=== PATIENT | female | born 1995 | race African-American/Black ===

== ENCOUNTER 2019-12-03 05:24 | Observation (INO) | payer BC ==
[~2019-12-03] VITALS: Ht 157.5 cm; Wt 97.0 kg
[2019-12-03] VITALS (14 sets, daily range): BP systolic 115–155; BP diastolic 69–98
[~2019-12-03 05:24] MED LIST: Vit D3 PO; testosterone INJ
[2019-12-03] MEDS ORDERED: ceFAZolin sod 2 GM in NS 55 ML IVPB ONE (07:00)
[2019-12-03] MEDS ORDERED: Bupivacaine 0.25% Inj 30ml INJ ONE (07:05)
[2019-12-03] MEDS ORDERED: Bacitracin Oint 15gm Tube TOPIC ONE (07:05)
[2019-12-03] MEDS ORDERED: Muri-Lube ONE (07:05)
[2019-12-03] MEDS ORDERED: Dyna-Hex 2% Top Sol 2oz TOPIC ONE (07:05)
[2019-12-03] MEDS ORDERED: Lidocaine 1% 10mg/ml/Epi 0.005mg/ml 30ml vial INJ ONE (07:06)
[2019-12-03] MEDS ORDERED: Sodium Chloride 10ml vial INJ ONE (07:24)
[2019-12-03] MEDS ORDERED: Lidocaine 1% MPF 10mg/ml 5ml ONE ×2 (07:24→10:41)
[2019-12-03] MEDS ORDERED: fentaNYL 100 mcg/2 mL IV ONE (07:25)
--- NOTE | 2019-12-03 07:28 | Pre-Procedure Note/Attestation ---
Pre-Procedure Note/Attestation Complete Prior to Procedure Planned Procedure: bilateral Procedure Narrative: bilateral mastectomy and nipple areola reconstruction Indications for Procedure Pre-Operative Diagnosis: gender dysphoria Attestation I attest that I discussed the nature of the procedure; its benefits; risks and complications; and alternatives (and the risks and benefits of such a lternatives), prior to the procedure, with the patient (or the patient's legal retention representative). I attest that, if there was a reasonable possibility of needing a blood transfusion, the patient (or the patient's legal retention representative) was given the [facility] standardized written summary, pursuant to the Misbah Noe Blood Safety Act ([place] Health and Safety Code # 1645, as amended). I attest that I re-evaluated the patient just prior to the surgery and that there has been no change in the patient's H&P, except as documented below: Shaq Villalba MD Dec 03, 2019 07:28
[2019-12-03] MEDS ORDERED: LR 1000ml 1,000 ML IVLG SCH (07:30)
[2019-12-03] MEDS ORDERED: Sterile Water Irrig 1000ml IRRIG ONE ×2 (07:30→09:00)
[2019-12-03] MEDS ORDERED: LORazepam Inj 2mg/ml 1ml IV PRN (07:30)
[2019-12-03] MEDS ORDERED: HYDROcodone/Acetamin 5/325 tab ORAL PRN ×2 (07:30→11:15)
[2019-12-03] MEDS ORDERED: Ketorolac 30mg Inj IV PRN ×2 (07:30)
[2019-12-03] MEDS ORDERED: Midazolam 2mg/2ml Inj IVP PRN (07:30)
[2019-12-03] MEDS ORDERED: Hydromorphone 0.5mg/0.5ml inj IVP PRN (07:30)
[2019-12-03] MEDS ORDERED: NS Irrig 1000ml ONE (07:30)
[2019-12-03] MEDS ORDERED: LR 1000ml ONE ×2 (07:30→09:00)
[2019-12-03] MEDS ORDERED: HYDROcodone/Acetamin 7.5/325 tab ORAL PRN (07:30)
[2019-12-03] MEDS ORDERED: Atropine Sulfate 0.4mg/ml inj IVP PRN (07:30)
[2019-12-03] MEDS ORDERED: Neostigmine 1mg/ml 10ml Inj ONE (07:30)
[2019-12-03] MEDS ORDERED: Meperidine 25mg/0.5ml Inj (FOR RIGORS ONLY) IV PRN (07:30)
[2019-12-03] MEDS ORDERED: oxyCODONE HCL/Acetaminophen 5/325mg ORAL PRN (07:30)
[2019-12-03] MEDS ORDERED: DiphenhydrAMINE 50mg/ml Inj IVP PRN (07:30)
[2019-12-03] MEDS ORDERED: propofoL 1,000mg/100ml IV ONE (07:30)
[2019-12-03] MEDS ORDERED: fentaNYL 100 mcg/2 mL IV PRN (07:30)
[2019-12-03] MEDS ORDERED: Acetaminophen (Non formulary) 100 ML IV ONE (07:30)
[2019-12-03] MEDS ORDERED: Metoclopramide 10mg/2ml Inj IVP PRN (07:30)
[2019-12-03] MEDS ORDERED: Labetalol 5mg/ml 20ml vial IV PRN (07:30)
--- NOTE | 2019-12-03 07:31 | Anethesia Preoperative Eval ---
Anesthesia Pre-op PMH/ROS General Date of Evaluation: Dec 03, 2019 Time of Evaluation: 07:31 Anesthesiologist: Valentin ASA Score: ASA 2 Mallampati Score Class I : Soft palate, uvula, fauces, pillars visible Class II: Soft palate, uvula, fauces visible Class III: Soft palate, base of uvula visible Class IV: Only hard plate visible Mallampati Classification: Class I Surgeon: Orly Diagnosis: Gender Dysphoria Surgical Procedure: Bilateral Mastectomy with Nipple Reconstruction Anesthesia History: none Family History: no anesthesia problems Allergies: Coded Allergies: No Known Allergies (Unverified , 12/02/19) Medications: see eMAR Patient NPO?: Yes Past Medical History Cardiovascular: Reports: HTN Anesthesia Pre-op Phys. Exam Physician Exam Last Vital Signs Date Time Temp Pulse Resp B/P (MAP) Pulse Ox O2 Delivery O2 Flow Rate FiO2 12/03/19 05:48 97.3 78 18 155/84 99 Room Air Constitutional: NAD Neurologic: CN 2-12 intact Cardiovascular: RRR Respiratory: CTA Gastrointestinal: S/NT/ND Airway Exam Mallampati Score: Class II MO: full ROM: limited Teeth: intact Anesthesia Pre-op A/P Labs Urine Test Test 12/03/19 05:30 Urine HCG, Qualitative Negative (NEGATIVE) Risk Assessment & Plan Assessment: ASA 2 Plan: GA, SED, GlideScope Status Change Before Surgery: No Pre-Antibiotics Dru Grams Ancef IV Given Within 1 Hr of Incision: Yes Time Given: 07:46 Rivas Hanson MD Dec 03, 2019 07:31
[2019-12-03] MEDS ORDERED: Rocuronium Bromide 50mg/5ml Inj IV ONE (07:33)
[2019-12-03] MEDS ORDERED: NS Irrig 1000ml IRRIG ONE ×2 (07:54→08:14)
--- NOTE | 2019-12-03 08:59 | Immediate Post-Op Evaluation ---
Immediate Post-Op Evalulation Immediate Post-Op Evalulation Procedure: Bilateral Mastectomy with Nipple Reconstruction Date of Evaluation: Dec 03, 2019 Time of Evaluation: 11:50 IV Fluids: 1700 LR Blood Products: 0 Estimated Blood Loss: 50 Urinary Output: 0 Blood Pressure Systolic: 153 Blood Pressure Diastolic: 98 Pulse Rate: 93 Respiratory Rate: 16 O2 Sat by Pulse Oximetry: 100 Temperature (Fahrenheit): 97.8 Pain Score (1-10): 2 Nausea: No Vomiting: No Complications 0 Patient Status: awake, reacts, patent, extubated, none Hydration Status: adequate Dru Grams Ancef IV Given Within 1 Hr of Incision: Yes Time Given: 07:46 Rivas Hanson MD Dec 03, 2019 08:59
[2019-12-03] MEDS ORDERED: Lidocaine 1% Plain 30 ml INJ ONE (09:12)
[2019-12-03] MEDS ORDERED: Glycopyrrolate 0.2mg/ml 1ml Vial ONE (10:49)
--- NOTE | 2019-12-03 11:07 | Operative Note - PDOC ---
Operative Note Operative Note Date of Operation/Procedure: Dec 03, 2019 Pre-op Diagnosis: gender dysphoria Procedure: bilateral mastectomy, bilateral nipple areola reconstruction Post-op Diagnosis: same as pre-op Surgeon: Orly Anesthesiologist: Valentin Anesthesia: general Specimen: yes Complications: none Condition: stable Estimated Blood Loss: minimal Drains: TONY Implant(s) used?: No Shaq Villalba MD Dec 03, 2019 11:07
--- NOTE | 2019-12-03 11:08 | Discharge Instructions ---
Discharge Instructions Discharge Instructions Follow up with: Dr. Villalba 12/09/19 Diet: regular Resume Normal Activity?: Yes - do not lift or carry anything heavier than 10 lbs Activity: ambulate For Surgical Patients Dressing Care: keep dry and clean May shower: No - sponge bathe only For Congestive Heart Failure Reminder Report to your physician any weight gain of 5 pounds or more in one week. Shaq Villalba MD Dec 03, 2019 11:08
[2019-12-03] MEDS ORDERED: HYDROmorphone 1mg/ml Carpuject SUBQ PRN (11:15)
[2019-12-03] MEDS ORDERED: Tylenol #3 tab (300mg/30mg) ORAL PRN (11:15)
--- NOTE | 2019-12-03 13:40 | NUR ---
NURSE NOTES: Patient arrived on unit. Stable. Breathing is even and unlabored. No visible signs of distress noted. Surgical dressing c/d/i. TONY x2 noted, both compressed and draining bloody output. Patient oriented to room, call light, and unit. Patient instructed to use call light for assistance, verbalized understanding. All safety measures provided. Patient is in bed in locked and lowest position with call light within reach. All needs met at this time. Will continue to monitor.
--- NOTE | 2019-12-03 14:15 | Operative Note - Dictated ---
DATE OF OPERATION: 12/03/2019 PREOPERATIVE DIAGNOSIS: Gender dysphoria. POSTOPERATIVE DIAGNOSIS: Gender dysphoria. PROCEDURE: 1. Bilateral mastectomy. 2. Bilateral nipple-areola reconstruction utilizing full-thickness grafts (each graft 2.5 x 2.5 cm). SURGEON: Shaq Villalba MD. ANESTHESIOLOGIST: Rivas Hanson MD. ANESTHESIA: General. ESTIMATED BLOOD LOSS: Minimal. SPECIMENS: 1. Right breast. 2. Left breast. DRAINS: A 15-Welsh Luke x2. COMPLICATIONS: None. CONDITION: To recovery room stable. INDICATION FOR PROCEDURE: This is a very pleasant 24-year-old trans male, who desires top surgery as part of his transition. He has the appropriate letter for recommendation from his therapist and meets all WPATH criteria for top surgery. I have discussed the risks, benefits, and alternatives to the procedure with him including, but not limited to, bleeding, infection, scarring, nerve injury, asymmetry, contour deformity, hematoma, seroma, loss of nipple sensation, loss of nipple graft and need for additional surgery including revisions. I discussed the orientation of the incisions and the unpredictable nature of scarring. No guarantees were made regarding the outcome. All of his questions have been answered to the best of my ability. He verbalized understanding with everything that we discussed and wishes to proceed. DESCRIPTION OF PROCEDURE: The patient was identified in the preoperative holding area and marked in the standing position. He was then brought to the operating room where he was placed in the supine position on the operating room table with his arms extended on arm boards. All bony prominences were adequately padded. Sequential compression devices were placed and intravenous antibiotics were administered. After induction of anesthesia, the patient's chest was prepped and draped in sterile fashion. Starting on the left breast first, a [place] measuring 2.5 cm in diameter was drawn out centered around the nipple. Next, the subdermal plane within this marking was infiltrated with 4 mL of 1% lidocaine with epinephrine. I then used a 15 blade scalpel to incise the areolar marking and proceeded to harvest a full-thickness nipple areola graft. The graft was subsequently defatted, wrapped in wet gauze and placed on the back table. I then made the inframammary fold incision using a 10 blade scalpel. Dissection proceeded down through the underlying tissues until the pectoralis major fascia was reached. I then made the superior breast incision using a 10 blade scalpel. Dissection proceeded down to the level of Shobha's fascia. Skin Rakes were used to retract the skin and a plane of dissection was created superiorly between the subcutaneous tissues and underlying breast parenchyma. Next, the breast parenchyma was elevated off of the pectoralis major fascia proceeding from a medial to lateral direction. The specimen was passed off the table. Hemostasis was achieved and the wound was irrigated with saline, 10 mL of FloSeal was placed within the wound cavity. A 15-Welsh Luke drain was then placed within the wound and brought out through a separate stab incision and secured using 2-0 silk suture. Skin dexter were then used to temporarily reapproximate the skin. I then shifted my attention to the contralateral side of the chest where the identical procedure was performed. The patient was then sat up on the operating room table and it appeared that he had very reasonable symmetry between the two sides of his chest. I then used a marking pen to draw the new location of the nipple areola complex on each side of the chest and these markings were confirmed with direct measurements. He was then placed back in the supine position. On each side of the chest, the skin dexter were removed and wound closure was performed using interrupted 0 Vicryl suture for the Shobha's fascia layer followed by interrupted 3-0 PDS suture for the deep dermal layer and then a running 3-0 Monocryl subcuticular suture to reapproximate the skin. I then proceeded with the nipple areola reconstruction portion of the procedure. Starting on the left chest first, the shasta areolar marking was incised using a 15 blade scalpel. The intervening skin within the marking was then de-epithelialized. I then brought out the full-thickness nipple areola graft and proceeded to inset it into the de-epithelialized area using a running 5-0 fast-absorbing suture. Next, several 2-0 silk suture ties were placed around the periphery of the graft. The skin graft bolster was fashioned and then secured into place directly on top of the nipple areola graft using the 2-0 silk sutures. 10 mL of 0.25% plain Marcaine was then injected into the incision. I then shifted my attention to the contralateral side of the chest where the identical procedure was performed. Steri-Strips were placed on top of the surgical incisions followed by sterile dressings. The patient was then placed into a compressive chest wrap. He tolerated the procedure well and was sent to the recovery room in stable condition. All instrument, sharp, and sponge counts were correct at the conclusion of the case. Shaq Villalba M.D. DR: ROBIN JOB#: [id number] CC: KTAELIN
[2019-12-03] MEDS ORDERED: D5 1/2NS 1,000 ML IV SCH (15:00)
[2019-12-03] MEDS: D5 1/2NS w/KCl 20mEq 1,000 ML IV SCH (16:30)
--- NOTE | 2019-12-03 16:43 | History and Physical ---
History of Present Illness General Date patient seen: Dec 03, 2019 Time patient seen: 01:20 Present Illness HPI 24 transgender M was admitted following bilateral mastectomy for episode of hypoxia. Patient was seen following bilateral mastectomy and nipple reconstruction by Dr. Villalba in the PACU. Per nursing staff patient was doing well post-op, however following extubation had an episode of desaturation and was having difficulty awakening. On evaluation at bedside patient was intermittently somnolent and requiring 2-3L NC to maintain O2 sat >95%. He denies any other medical problems. He does have a family history of diabetes and hypertension. He takes vitamin D supplements and testosterone injections weekly. He denied any n/v, chest pain, or change in bowel movements. Patient lives alone. Allergies: Coded Allergies: No Known Allergies (Unverified , 12/02/19) COVID-19 Screening Contact w/high risk pt: No Experienced COVID-19 symptoms?: No Medication History Scheduled [Vit D3], 1 TAB-CAP PO DAILY, (Reported) [testosterone ], 1 EA INJ QWEEK, (Reported) Patient History History Provided By: Patient Healthcare decision maker Resuscitation status Advanced Directive on File Past Medical/Surgical History Past Medical/Surgical History: (1) Respiration slowed or stopped Family History Family History: FH: diabetes mellitus FH: hypertension Review of Systems Constitutional: Denies: no symptoms, see HPI, chills, sweats, fever, malaise, weakness, other Eye: Denies: no symptoms, see HPI, eye pain, blurred vision, tearing, double vision, nose pain, nose congestion, acuity changes, discharge, other ENT: Denies: no symptoms, see HPI, ear pain, ear discharge, nose pain, nose congestion, throat pain, throat swelling, mouth pain, hearing loss, nasal discharge, other Respiratory: Denies: no symptoms, see HPI, cough, orthopnea, shortness of breath, stridor, wheezing, CABAN, sputum, other Cardiovascular: Denies: no symptoms, see HPI, chest pain, edema, palpitations, syncope, PND, other Gastrointestinal: Denies: no symptoms, see HPI, abdominal pain, constipation, diarrhea, nausea, vomiting, melena, hematemesis, other Genitourinary: Denies: no symptoms, see HPI, discharge, dysuria, frequency, hematuria, pain, retention, incontinence, urgency, vag bleed/dc, other Musculoskeletal: Denies: no symptoms, see HPI, back pain, gout, joint pain, joint swelling, muscle pain, muscle stiffness, other Skin: Denies: no symptoms, see HPI, rash, change in color, change in hair/nails, dryness, lesions, other Psychiatric: Denies: no symptoms, see HPI, prior hx, anxiety, depressed feelings, emotional problems, SI, HI, hallucinations, other Neurological: Denies: no symptoms, see HPI, headache, numbness, paresthesia, seizure, tingling, tremors, focal weakness, syncope, dizziness, other Endocrine: Denies: no symptoms, see HPI, excessive sweating, flushing, intolerance to temperature, increased thirst, increased urine, unexplained weight loss, other Hematologic/Lymphatic: Denies: no symptoms, see HPI, anemia, blood clots, easy bleeding, easy bruising, swollen glands, diathesis, other Physical Exam General Appearance: lethargic, overweight Lines, tubes and drains: other - drain in place with bandage wrapping following mastectomy HEENT: normocephalic, atraumatic Neck: supple Respiratory/Chest: normal breath sounds Cardiovascular/Chest: normal rate, regular rhythm Abdomen: non tender, soft Extremities: normal range of motion Skin Exam: warm/dry Neurologic: commercial assistant II-XII grossly normal Last 24 Hour Vital Signs Date Time Temp Pulse Resp B/P (MAP) Pulse Ox O2 Delivery O2 Flow Rate FiO2 12/03/19 15:00 Room Air 12/03/19 13:30 97.9 84 20 118/72 97 Nasal Cannula 3 12/03/19 13:15 80 21 120/75 97 Nasal Cannula 3 12/03/19 13:00 84 21 122/75 98 Nasal Cannula 3 12/03/19 12:45 88 23 131/78 96 Nasal Cannula 3 12/03/19 12:30 82 23 134/85 96 Nasal Cannula 3 12/03/19 12:17 88 22 131/87 97 Nasal Cannula 3 12/03/19 12:02 87 22 136/87 99 Simple Mask 6 12/03/19 11:52 85 24 137/98 100 Simple Mask 6 12/03/19 11:42 90 22 139/94 100 Simple Mask 6 12/03/19 11:40 93 16 100 12/03/19 11:37 92 20 148/98 100 Simple Mask 6 12/03/19 11:32 97.8 97 15 153/98 99 Simple Mask 6 12/03/19 05:48 97.3 78 18 155/84 99 Room Air 12/03/19 05:48 Room Air Intake and Output 12/02/19 12/03/19 18:59 06:59 # Voids 1 Laboratory Tests Test 12/03/19 05:30 Urine HCG, Qualitative Negative (NEGATIVE) Height (Feet): 5 Height (Inches): 2.00 Weight (Pounds): 214 Medications Current Medications Medications (Trade) Dose Ordered Sig/Nicole Route PRN Reason Start Time Stop Time Status Last Admin Dose Admin Acetaminophen/ Codeine Phosphate (Tylenol #3) 1 tab Q4H PRN ORAL mild pain 12/03/19 11:15 12/10/19 11:14 Acetaminophen/ Hydrocodone Bitart ([place] 5/325) 1 tab Q4H PRN ORAL Moderate Pain (Pain Scale 4-6) 12/03/19 12:00 12/10/19 11:59 Dextrose/ Electrolytes 1,000 ml @ 125 mls/hr Q8H IV 12/03/19 16:00 01/02/20 15:59 Docusate Sodium (Colace) 100 mg TWICE A DAY ORAL 12/03/19 18:00 01/02/20 17:59 Hydromorphone HCl (Dilaudid) 1 mg Q1H PRN SUBQ Severe Pain (Pain Scale 7-10) 12/03/19 11:15 12/10/19 11:14 Ibuprofen (Motrin) 800 mg THREE TIMES A DAY ORAL 12/03/19 18:00 01/02/20 17:59 Ondansetron HCl (Zofran) 4 mg Q6H PRN IVP Nausea & Vomiting 12/03/19 12:00 01/02/20 11:59 Assessment/Plan Assessment/Plan: #Hypoxia #Possible Sleep Apnea Patient initially evaluated following surgery in PACU. O2 sat 95-97% on 2-3L NC. Given weight patient could have a component of sleep apnea vs. obesity hypoventilation. - Continue to monitor and wean off oxygen - Keep O2 sat >92% - Incentive spirometer - CXR if needed if O2 sat cannot be weaned or if febrile - Patient may benefit from outpatient sleep study #S/p Bilateral Mastectomy - Surgery 12/[address] Villalba - Continue excellent post-op care - Ancef 1g prior to surgery - Wound dressings in place #Transgender Female to Male - Currently taking weekly testosterone injections #Low Vitamin D - Continue supplementation on discharge #Obesity - BMI 39.1 - Will continue to field counsel on weight I spent approximately 50 minutes on this encounter with 20 minutes spent with counseling and care coordination. Discussed with nursing staff and Dr. Villalba. Time of note does not reflect time of encounter. Winifred Armando M.D. Dec 03, 2019 16:43
[2019-12-03] MEDS: Docusate 100mg cap ORAL SCH (17:42)
--- NOTE | 2019-12-03 18:26 | NUR ---
NURSE NOTES: TONY Left: 35cc bloody output. TONY right: 10cc bloody output.
--- NOTE | 2019-12-03 19:36 | NUR ---
NURSE HAND-OFF: Important Events on Shift:s/p surgery, void x2 Patient Status: stable Diet: regular Pending Orders: n/a Pending Results/Labs:n/a Pending MD notification:n/a Latest Vital Signs: Temperature 98.3 , Pulse 94 , B/P 123 /79 , Respiratory Rate 18 , O2 SAT 95 , Nasal Cannula, O2 Flow Rate 3 . Vital Sign Comment: n/a Latest Ibarra Fall Score: 35 Fall Risk: Medium Risk Safety Measures: Call light Within Reach, Side Rails x2, Bed position Low and Locked. Fall Precautions: Patient Fall Education Report given to Irasema RN.
[2019-12-03] MEDS: HYDROcodone/Acetamin 5/325 tab ORAL PRN (21:09)
[2019-12-04] VITALS: BP 106/66
[2019-12-04] MEDS: D5 1/2NS w/KCl 20mEq 1,000 ML IV SCH ×2 (00:14→08:03)
--- NOTE | 2019-12-04 01:14 | NUR ---
NURSE NOTES: RECEIVED PATIENT FROM ELIZABETH HOLGUIN. PATIENT IS ASLEEP, ON ROOM AIR, NO ACUTE DISTRESS NOTED. WOUND DRESSINGS INTACT, TONY DRAINS NOTED ON BILATERAL BREASTS, SEROSANGUINOUS OUTPUT NOTED. PIV ON RIGHT HAND, RUNNING D5 1/2 NS W/ 20MEQ AT 125ML/HR. SCDS ON. BED IS LOCKED AND LOW, BED ALARMS ACTIVE, SIDE RAILS UPX2, AND CALL LIGHT IS WITHIN REACH. WILL CONTINUE TO MONITOR.
[2019-12-04 04:00] VITALS: BP 119/75
[2019-12-04 07:02] LABS: BASOPHILS % (AUTO) 1.7 % (0.0-2.0); EOSINOPHILS % (AUTO) 0.2 % (0.0-3.0); HEMATOCRIT 47.4 % (42.0-52.0); HEMOGLOBIN 15.4 G/DL (14.2-18.0); LYMPHOCYTES % (AUTO) 19.6 % (20.0-45.0); MEAN CORPUSCULAR VOLUME 84 FL (80-99); MONOCYTES % (AUTO) 6.3 % (1.0-10.0); NEUTROPHILS % (AUTO) 72.3 % (45.0-75.0); PLATELET COUNT 271 K/UL (150-450); RED BLOOD COUNT 5.62 M/UL (4.70-6.10); RED CELL DISTRIBUTION WIDTH 12.3 % (11.6-14.8); WHITE BLOOD COUNT 8.2 K/UL (4.8-10.8)
[2019-12-04 07:05] LABS: ANION GAP 7 mmol/L (5-15); BLOOD UREA NITROGEN 10 mg/dL (7-18); CALCIUM 8.4 MG/DL (8.5-10.1); CARBON DIOXIDE 25 MMOL/L (21-32); CHLORIDE 103 MMOL/L (98-107); CREATININE 0.9 MG/DL (0.55-1.30); POTASSIUM 3.9 MMOL/L (3.5-5.1); SODIUM 135 MMOL/L (136-145)
--- NOTE | 2019-12-04 07:19 | NUR ---
NURSE HAND-OFF: Important Events on Shift: DRESSINGS INTACT, (R) TONY 5ML OUTPUT, (L) TONY 35ML OUTPUT, DOING WELL ON ROOM AIR, ENCOURAGE INCENTIVE SPIROMETER USE. Patient Status: STABLE Diet: REGULAR Pending Orders: DISCHARGE PLANNING Pending Results/Labs: CBC, BMP Pending MD notification:N/A Latest Vital Signs: Temperature 98.1 , Pulse 85 , B/P 119 /75 , Respiratory Rate 17 , O2 SAT 98 , Room Air, O2 Flow Rate 3 . Vital Sign Comment: STABLE Latest Ibarra Fall Score: 35 Fall Risk: Medium Risk Safety Measures: Call light Within Reach, Bed Alarm Zone 1, Side Rails Side Rails x2, Bed position Low and Locked. Fall Precautions: Yellow Socks Yellow Gown Door Sign Patient Fall Education Report given to ELIZABETH MURGUIA.
--- NOTE | 2019-12-04 07:49 | NUR ---
NURSE NOTES: Received AM report, pt is siting up in the bed, and watching TV. no acute distress noted at this time. exchanged greetings with pt. call light is within reach, will follow plan of care.
[2019-12-04] MEDS: HYDROcodone/Acetamin 5/325 tab ORAL PRN (07:59)
[2019-12-04 08:00] VITALS: BP 132/81
[2019-12-04] MEDS: Docusate 100mg cap ORAL SCH (08:57)
--- NOTE | 2019-12-04 08:58 | NUR ---
CASE MANAGEMENT: REVIEW 24 YEAR OLD MALE DIRECT ADMIT FROM HOME CC: GENDER DYSPHORIA SI: GENDER DYSPHORIA BILATERAL MASTECTOMY & NIPPLE AREOLA RECONSTRUCTION 12/02 T 97.3 HR 78 RR 18 BP 155/84 SAT 99% SIMPLE MASK FLOW RATE 6 LYMPH 19.6 NA 135 GLUCOSE 126 CALCIUM 8.4 IS: LR IVF X1 PROPOFOL IV X1 VERSED IV X1 FENTANYL IV X1 ANCEF IV X1 ZOFRAN IV X1 PATIENT ADMITTED TO MED/SURG UNIT 12/03/2019 DCP: PATIENT IS FROM HOME
[2019-12-04] MEDS ORDERED: HYDROCODON-ACE1 EA15 ORAL (10:31)
--- NOTE | 2019-12-04 10:41 | Discharge Summary ---
Discharge Summary Hospital Course Date of Admission Dec 03, 2019 at 14:30 Date of Discharge 12/04/19 Admitting Diagnosis jordon dysmorphia s/p b/l breast reduction and reconstruction HPI Augusto Cadena is a 24 year old male who was admitted on Dec 03, 2019 at 14:30 for Gender Dysphoria Consultations Dr. Villalba Hospital Course 24 transgender M was admitted following bilateral mastectomy for episode of hypoxia. Patient was seen following bilateral mastectomy and nipple reconstruction by Dr. Villalba in the PACU. Per nursing staff patient was doing well post-op, however following extubation had an episode of desaturation and was having difficulty awakening. On evaluation at bedside patient was intermittently somnolent and requiring 2-3L NC to maintain O2 sat >95%. He denies any other medical problems. He does have a family history of diabetes and hypertension. He takes vitamin D supplements and testosterone injections weekly. The next morning patient is off oxygen and feels minimal pain. He would like to go home hand have his friend pick him up. He is urinating and having BMs. Ambulating on own. Discussed with Dr. Villalba. He denied any n/v, chest pain, or change in bowel movements. Patient lives alone. #Hypoxia #Possible Sleep Apnea Patient initially evaluated following surgery in PACU. O2 sat 95-97% on 2-3L NC. Given weight patient could have a component of sleep apnea vs. obesity hypoventilation. - Continue to monitor and wean off oxygen - Keep O2 sat >92% - Incentive spirometer - CXR if needed if O2 sat cannot be weaned or if febrile - Patient may benefit from outpatient sleep study #S/p Bilateral Mastectomy - Surgery 12/[address] Villalba - Continue excellent post-op care - Ancef 1g prior to surgery - Wound dressings in place #Transgender Female to Male - Currently taking weekly testosterone injections #Low Vitamin D - Continue supplementation on discharge #Obesity - BMI 39.1 - Will continue to apprise counselor on weight I spent approximately 65 minutes on this encounter with 40 minutes spent with counseling and care coordination. Discussed with nursing staff and Dr. Villalba. Discharge Medications New Medications: Hydrocodone/Acetaminophen 5-325* (Hydrocodone/Acetaminophen 5-325*) 1 Each Tablet 1 TAB ORAL Q4H PRN, #10 TAB Continued Medications: [testosterone ] () 1 EA INJ QWEEK [Vit D3] () 1 TAB-CAP PO DAILY Discharge Condition Upon Discharge: stable Discharge Vital Signs Last Vital Signs Date Time Temp Pulse Resp B/P (MAP) Pulse Ox O2 Delivery O2 Flow Rate FiO2 12/04/19 09:00 Room Air 12/04/19 08:00 98.1 82 18 132/81 (98) 95 12/03/19 13:30 3 Discharge Disposition Patient was discharged to Discharge Diagnoses: (1) Respiration slowed or stopped (2) Gender dysphoria (3) Postoperative hypoxia Discharge Instructions Discharge Instructions Follow up with: Dr. Villalba 12/09/19 Activity: ambulate For Surgical Patients Dressing Care: keep dry and clean May shower: No - sponge bathe only Eduin Acosta M.D. Dec 04, 2019 10:41
--- NOTE | 2019-12-04 12:10 | NUR ---
NURSE NOTES: Patient is discharged home without any signs of distress. Patient is alert and awake. A&O X 4. verbally responsive. Respiration is even and unlabored on room air. c/o pain on s/p bilateral mastectomy site, rates pain level 2/10. Patient has belongings; inventory paper signed. Patient did not bring home medications. Skin is clean and intact. Patient is provided with after-care instructions, provided medication teaching, and to follow-up with any MD's appointment, patient verbalized understanding of after-care instructions. IV site and wrist band removed. Patient is discharged home in company of his friend, left the hospital via a private vehicle
[2019-12-04 14:07] VITALS: BP 128/76
--- NOTE | 2019-12-04 14:07 | 48 Hour Post Anesthesia Eval ---
Post Anesthesia Evaluation Procedure: Bilateral Mastectomy with Nipple Reconstruction Date of Evaluation: Dec 04, 2019 Time of Evaluation: 10:20 Blood Pressure Systolic: 128 0: 76 Pulse Rate: 78 Respiratory Rate: 20 Temperature (Fahrenheit): 97.9 O2 Sat by Pulse Oximetry: 98 Airway: patent Nausea: No Vomiting: No Pain Intensity: 3 Hydration Status: adequate Cardiopulmonary Status: stable Mental Status/LOC: patient returned to baseline Follow-up Care/Observations: n/a Post-Anesthesia Complications: none Follow-up care needed: ready to discharge Ori Bailon MD Dec 04, 2019 14:07
== END 2019-12-04 12:36 | disposition home or self-care (01) ==
LOC: SUR 05:24 → EDSEX 11:00 → 3E 14:30
DX: F64.9 Gender identity disorder, unspecified (principal); R09.02 Hypoxemia; Z68.39 Body mass index [BMI] 39.0-39.9, adult; F64.0 Transsexualism; E66.2 Morbid (severe) obesity with alveolar hypoventilation; E55.9 Vitamin D deficiency, unspecified; Z83.3 Family history of diabetes mellitus; Z82.49 Family history of ischemic heart disease and other diseases of the circulatory system; I10 Essential (primary) hypertension
CPT/HCPCS: 19303; 19350; 36415; 80048; 81025; 85025; 94003; 96360; 96361; G0378; J0131; J0690; J1100; J2001; J2250; J2405; J2704; J2710; J3010; J3490; J7120; U0002; 94150